=== PATIENT | female | born 2000 | race Two or more races ===

== ENCOUNTER 2020-09-11 20:56 | Emergency (ER) | payer MEDICAID ==
[~2020-09-11] VITALS: Ht 162.6 cm; Wt 81.4 kg
[2020-09-11] MEDS ORDERED: SODIUM CHLORIDE 0.9% 1,000 ML IV ONE (22:30)
[2020-09-12 00:44] VITALS: BP 128/70
== END 2020-09-12 01:23 | disposition home or self-care (01) ==
LOC: EMS 20:58
DX: T78.2XXA Anaphylactic shock, unspecified, initial encounter (principal); F17.200 Nicotine dependence, unspecified, uncomplicated
CPT/HCPCS: 96360; 99285; J7030